=== PATIENT | female | born 1965 | race Caucasian/White ===

== ENCOUNTER 2019-03-09 17:15 | Emergency (ER) | payer OTHER ==
--- NOTE | 2019-03-09 18:22 | PHYS DOC ---
Adult General Chief Complaint Chief Complaint: NECK INJURY HPI HPI Patient is a 53 year old female who presents with neck pain. The patient came to the emergency department after she received outpatient imaging of her head and neck earlier today. Patient states that she fell 2 days ago off of a ladder approximate 6-8 feet off of the ground. She states she fell onto the left side of her head. Noted that she had increased bruising around her left eye but also noted that she was unable to turn her neck secondary to pain. She originally saw her primary physician earlier today who referred her to urgent care. While at urgent care, they ordered a head and neck CT to evaluate the patient. The patient was then contacted by the radiology service and she was told that she had a fracture in her neck and needed to return immediately to the emergency department. The patient states that since her fall she has been walking and has not noticed any numbness or weakness in her extremities. Denies any other complaints currently. States that she is unable to turn her neck either direction secondary to pain. Review of Systems Review of Systems Constitutional: Denies fever or chills [] Eyes: Bruising to left eye, denies change in visual acuity, redness, or eye pain [] HENT: Denies nasal congestion or sore throat [] Respiratory: Denies cough or shortness of breath [] Cardiovascular: Denies chest pain or edema[] GI: Denies abdominal pain, nausea, vomiting, bloody stools or diarrhea [] : Denies dysuria or hematuria [] Musculoskeletal: Neck pain[] Integument: Denies rash or skin lesions [] Neurologic: Denies headache, focal weakness or sensory changes [] All other systems were reviewed and found to be within normal limits, except as documented in this note. Physical Exam Physical Exam Constitutional: Alert, afebrile, no acute distress. [] HENT: Normocephalic, ecchymosis along superior lateral aspect of left orbit, bilateral external ears normal, oropharynx moist, no oral exudates, nose normal. [] Eyes: PERRLA, EOMI, conjunctiva normal, no discharge. [] Neck: C-collar placed during triage, midline tenderness at the superior end of cervical spine near base of skull, trachea midline, no stridor. [] Cardiovascular:Heart rate regular rhythm, no murmur [] Lungs & Thorax: Bilateral breath sounds clear to auscultation [] Abdomen: Bowel sounds normal, soft, no tenderness, no masses, no pulsatile masses. [] Skin: Warm, dry, no erythema, no rash. [] Back: No tenderness, no CVA tenderness. [] Extremities: No tenderness, no cyanosis, no clubbing, ROM intact, no edema. [] Neurologic: Alert and oriented X 3, normal motor function, normal sensory function, no focal deficits noted. [] Current Patient Data Vital Signs Vital Signs Date Time Temp Pulse Resp B/P (MAP) Pulse Ox O2 Delivery O2 Flow Rate FiO2 03/09/19 18:27 86 18 Room Air Lab Results Not performed EKG EKG Not performed[] Radiology/Procedures Radiology/[place] [address] IMAGING REPORT Signed PATIENT: RICHARD KAMARA ACCOUNT: [id number] : 1965 LOCATION: [facility] AGE: 53 SEX: F EXAM STATUS: REG CLI ORD. PHYSICIAN: JULIETTE YUSUF REASON: FALL, NECK PAIN PROCEDURE: CT HEAD AND CERVICAL SPINE WO PQRS Compliance Statement: One or more of the following individualized dose reduction techniques were utilized for this examination: 1. Automated exposure control 2. Adjustment of the mA and/or kV according to patient size 3. Use of iterative reconstruction technique CT head and cervical spine without contrast 03/09/2019 4:29 PM INDICATION: Fall, neck pain COMPARISON: None available TECHNIQUE: Multiple axial CT images of the head were obtained from skull base through the vertex without intravenous contrast. Multiple axial CT images of the cervical spine were obtained without intravenous contrast. Coronal and sagittal reformats are provided. FINDINGS: Head: Ventricles, sulci and basal cisterns are within normal limits. There is no hydrocephalus. Pappas-white matter differentiation is normal. There is no acute intracranial hemorrhage. There is no mass, mass effect or midline shift. Posterior fossa is normal in appearance. Visualized portions of the orbits are normal. Paranasal sinuses are well aerated. Mastoid air cells are well aerated. Scalp and calvaria are normal. Cervical spine: Alignment of the cervical spine is normal. Skull base is intact. Craniocervical junction is normal in appearance. Atlantoaxial articulation is normal. There is an acute fracture involving the right anterior arch of C1 is mildly displaced. No definite additional fracture is identified. Mild right-sided facet arthropathy is identified at C2-C3 and C3-C4. There is a posterior disc osteophyte complex at C4-C5 with mild uncovertebral joint disease resulting in mild spinal canal stenosis. At C5-C6, there is a posterior disc osteophyte complex with moderate left and mild right uncovertebral joint disease and mild facet arthropathy resulting in mild bilateral neuroforaminal stenosis and mild spinal canal stenosis. There is no prevertebral soft tissue swelling. Thyroid gland is normal in appearance. Visualized portions of the lung apices are normal without evidence for suspicious pulmonary nodule or infiltrate. IMPRESSION: 1. No acute intracranial hemorrhage. 2. Acute anterior right C1 arch fracture with mild displacement. No additional fractures are visualized. No compressive hematoma is identified. Critical result: Findings discussed with JULIETTE YUSUF by Isabelle the radiology orderly at 03/09/2019 4:55 PM. FOR INTERNAL CODING PURPOSES RESULT CODE: (C) Electronically signed by: Gladys Kenny MD (03/09/2019 4:59 PM) [id number] DICTATED AND SIGNED BY: GLADYS KENNY MD DATE: 03/09/191658 CC: NAME,JULIETTE LARSON; ANAND LOVE DO ~ [] Course & Med Decision Making Course & Med Decision Making Pertinent Labs and Imaging studies reviewed. (See chart for details) CT images confirm evidence of a right anterior C1 arch fracture. Patient currently on medical caught in a c-collar. I initially contacted [facility]'s neurosurgery service, however I was informed that they are not currently highway traffic control technician. After speaking with patient, we have agreed to contact [facility] for transfer. I spoke with Dr. Giang, transfer physician at [facility]. He contacted his neurosurgeon, Dr. Guerin. Dr. Guerin reviewed the images and stated that the patient's injury is a stable fracture. He recommended that the patient be placed in a c-collar to remain in place for the next 2 weeks until patient has followed up in his clinic at that time. Dr. Giang recommended contacting [facility]. I spoke with Mo, pest control service representative. He will come to the emergency department and patient in a [place] collar. Spoke with patient regarding plan of care and she is in agreement. Advised return to emergency department for any worsening symptoms. Dragon Disclaimer Dragon Disclaimer This electronic medical record was generated, in whole or in part, using a voice recognition dictation system. Departure Departure: Impression: Primary Impression: C1 cervical fracture Additional Impressions: Closed head injury Periorbital contusion of left eye Disposition: HOME, SELF-CARE Condition: STABLE Referrals: ANAND LOVE DO (PCP) Patient Instructions: Cervical Spine Fracture, Stable Additional Instructions: You were diagnosed with a fracture of the C1 vertebrae in your neck. This was reviewed by Dr. Guerin, a neurosurgeon at [facility]. This is a stable fracture. He recommends that you remain in a cervical collar at all times until you have followed up with him in 2 weeks. Return to the emergency department for any worsening symptoms. Scripts Oxycodone Hcl/Acetaminophen (PERCOCET 5-325 MG TABLET ) 1 Each Tablet 1 TAB PO Q4HRS PRN for PAIN, #20 TAB Prov: GURPREET FRYE MD 03/09/19 Problem Qualifiers Primary Impression: C1 cervical fracture Encounter type: initial encounter Fracture type: closed Fracture morphology: unspecified fracture morphology Fracture alignment: displaced Qualified Codes: S12.000A - Unspecified displaced fracture of first cervical vertebra, initial encounter for closed fracture Additional Impressions: Closed head injury Encounter type: initial encounter Qualified Codes: S09.90XA - Unspecified injury of head, initial encounter Periorbital contusion of left eye Encounter type: initial encounter Qualified Codes: S05.12XA - Contusion of eyeball and orbital tissues, left eye, initial encounter GURPREET FRYE MD Mar 09, 2019 18:22
[2019-03-09 18:27] VITALS: BP 137/84
[2019-03-09] MEDS ORDERED: OXYC1TAB15 PO (19:15)
== END 2019-03-09 21:00 | disposition home or self-care (01) ==
LOC: ER 17:15
DX: S12.090A Other displaced fracture of first cervical vertebra, initial encounter for closed fracture (principal); S05.12XA Contusion of eyeball and orbital tissues, left eye, initial encounter; S09.8XXA Other specified injuries of head, initial encounter; W11.XXXA Fall on and from ladder, initial encounter; Y93.89 Activity, other specified; Y92.89 Other specified places as the place of occurrence of the external cause; Y99.8 Other external cause status
CPT/HCPCS: 99283

== ENCOUNTER → 2019-03-09 | Outpatient (CLI) | payer OTHER ==
[~2019-03-09] MED LIST: OXYC1TAB15 PO
--- NOTE | 2019-03-09 17:03 | RAD ---
PQRS Compliance Statement: One or more of the following individualized dose reduction techniques were utilized for this examination: 1. Automated exposure control 2. Adjustment of the mA and/or kV according to patient size 3. Use of iterative reconstruction technique CT head and cervical spine without contrast 03/09/2019 4:29 PM INDICATION: Fall, neck pain COMPARISON: None available TECHNIQUE: Multiple axial CT images of the head were obtained from skull base through the vertex without intravenous contrast. Multiple axial CT images of the cervical spine were obtained without intravenous contrast. Coronal and sagittal reformats are provided. FINDINGS: Head: Ventricles, sulci and basal cisterns are within normal limits. There is no hydrocephalus. Pappas-white matter differentiation is normal. There is no acute intracranial hemorrhage. There is no mass, mass effect or midline shift. Posterior fossa is normal in appearance. Visualized portions of the orbits are normal. Paranasal sinuses are well aerated. Mastoid air cells are well aerated. Scalp and calvaria are normal. Cervical spine: Alignment of the cervical spine is normal. Skull base is intact. Craniocervical junction is normal in appearance. Atlantoaxial articulation is normal. There is an acute fracture involving the right anterior arch of C1 is mildly displaced. No definite additional fracture is identified. Mild right-sided facet arthropathy is identified at C2-C3 and C3-C4. There is a posterior disc osteophyte complex at C4-C5 with mild uncovertebral joint disease resulting in mild spinal canal stenosis. At C5-C6, there is a posterior disc osteophyte complex with moderate left and mild right uncovertebral joint disease and mild facet arthropathy resulting in mild bilateral neuroforaminal stenosis and mild spinal canal stenosis. There is no prevertebral soft tissue swelling. Thyroid gland is normal in appearance. Visualized portions of the lung apices are normal without evidence for suspicious pulmonary nodule or infiltrate. IMPRESSION: 1. No acute intracranial hemorrhage. 2. Acute anterior right C1 arch fracture with mild displacement. No additional fractures are visualized. No compressive hematoma is identified. Critical result: Findings discussed with JULIETTE YUSUF by Isabelle the echocardiography technologist at 03/09/2019 4:55 PM. FOR INTERNAL CODING PURPOSES RESULT CODE: (C) Electronically signed by: Chrissy Ambriz MD (03/09/2019 4:59 PM) [id number]
== END | disposition home or self-care (01) ==
LOC: DXRAD 16:19
PROVIDERS: ATTEND Physician Assistant
DX: S12.090A Other displaced fracture of first cervical vertebra, initial encounter for closed fracture (principal); S09.8XXA Other specified injuries of head, initial encounter; M12.88 Other specific arthropathies, not elsewhere classified, other specified site; M25.78 Osteophyte, vertebrae; W11.XXXA Fall on and from ladder, initial encounter; Y93.89 Activity, other specified; Y92.89 Other specified places as the place of occurrence of the external cause; Y99.8 Other external cause status
CPT/HCPCS: 70450; 72125